=== PATIENT | male | born 1945 | race African-American/Black ===

== ENCOUNTER 2018-10-23 00:46 | Outpatient (CLI) | payer BC, SELFPAY ==
--- NOTE | 2018-10-23 14:59 | DI.US_ITS ---
SYMPTOMS/DIAGNOSIS: ELEVATED PSA, ABNORMAL PROSTATE BY PALPATION, R97.20, N42.9 ULTRASOUND GUIDANCE FOR PROSTATE BIOPSY: Ultrasound guidance was provided for prostate biopsy performed by Dr. Dacosta. Please see Dr. Dacosta's procedure note.
--- NOTE | 2018-10-23 15:15 | PROST_PTH ---
PATIENT: Corey Subramanian LOC: [facility] U#:[id number] AGE/SX: 73/M ROOM: RE10/23/[address]: Juni Dacosta MD : 1945 BED: DIS: 10/23/2018 SPEC #: [id number] RECD: 10/23/18 17:54 STATUS: ARNULFO RE #: [id number] JACKIE: 10/23/18 15:[address]: Juni Dacosta DEPT: Surgical Specimen RECD BY: Bela Yu ENTERED: 10/23/18 18:10 SP TYPE: PROST OTHR DR: Kirill Hi Tissues: 1 - PROSTATE NEEDLE BIOPSY 2 - PROSTATE NEEDLE BIOPSY 3 - PROSTATE NEEDLE BIOPSY 4 - PROSTATE NEEDLE BIOPSY 5 - PROSTATE NEEDLE BIOPSY 6 - PROSTATE NEEDLE BIOPSY 7 - PROSTATE NEEDLE BIOPSY 8 - PROSTATE NEEDLE BIOPSY 9 - PROSTATE NEEDLE BIOPSY 10 - PROSTATE NEEDLE BIOPSY 11 - PROSTATE NEEDLE BIOPSY 12 - PROSTATE NEEDLE BIOPSY Procedures: GROSS AND MICRO LEVEL 4 Comments: [id number]
--- NOTE | 2018-10-23 16:26 | ROE_ITS ---
DATE OF PROCEDURE: October 23, 2018 PREPROCEDURE DIAGNOSIS: Elevated PSA. POSTPROCEDURE DIAGNOSIS: Same. PROCEDURE: Transrectal ultrasound-guided biopsy of the prostate. SURGEON: Juni Dacosta M.D. ANESTHESIA: Local. COMPLICATIONS: None. ESTIMATED BLOOD LOSS: Minimal. HISTORY: This is a 73-year-old gentleman who has a history of an elevated PSA. His most-recent leve l was 17 ng/mL. This level was drawn while he was on Finasteride. In addition to the elevated PSA, he had a firmness on the entire prostate, although the right side se emed more firm than the left. He presents now for ultrasound-guided biopsy of the prostate. PROCEDURE: The patient was given a pre-procedure mechanical and antibiotic bowel prep. He was broug ht to the radiology suite on 10/23/18. He was placed in the left lateral position. Transrectal imaging of the prostate was performed using a variable megahertz transducer. The prostat e was imaged in transverse and longitudinal planes. The prostatic volume was measured at 18 cc's. There was loss or architecture between the transition and peripheral zones. No specific hypoechoic a reas were seen however. Using 1% Xylocaine without epinephrine, a periprostatic nerve block was performed. Twelve laterally- directed biopsies were then taken and sent to Pathology for permanent section. Each biopsy was label ed separately. The patient tolerated this procedure well. There were no complications. cc: Kirill Hi M.D.
== END 2018-10-23 01:06 ==
PROVIDERS: PCP Family Medicine; Visit Provider Urology
DX: R97.20 Elevated prostate specific antigen [PSA]; C61 Malignant neoplasm of prostate
CPT/HCPCS: 55700; 76872; 76942; 88305

== ENCOUNTER 2018-11-24 01:11 | Outpatient (CLI) | payer BC, SELFPAY ==
--- NOTE | 2018-11-24 08:11 | DI.CT_ITS ---
SYMPTOM/DIAGNOSIS: R/O METS PROSTATE CANCER C61 CT ABDOMEN AND PELVIS: There are no prior comparison exams. Images were performed from the lung bases through the ischial tuberosities after IV and oral contrast. The heart size is normal. The lung bases are clear. There is respiratory motion on the upper images on the venous phase of exam. The liver, spleen, pancreas, kidneys, adrenals and gallbladder are unremarkable. The prostate appears mildly enlarged. The bladder wall appears thickened. There is no visible invasive mass. No adenopathy seen in the abdomen or pelvis. The right testicle is located within the right inguinal canal. No bowel dilatation or inflammatory changes are seen. There has been previous laminectomy at L4 and L5. There are severe degenerative disc changes with increased sclerosis at these levels. No lytic or blastic bony metastases are seen. The aorta shows mild calcification distally but is normal in diameter. IMPRESSION: Enlarged prostate without evidence of invasion locally. Diffusely thickened bladder wall. Right inguinal testicle.
--- NOTE | 2018-11-24 08:11 | DI.NM_ITS ---
SYMPTOM/DIAGNOSIS: ? METS, PROSTATE CA BONE SCAN: 24.3 millicuries of Technetium 99 M MDP were administered IV. Comparison is made with CT of the abdomen and pelvis of the same day. There is increased activity in the lower cervical, lower thoracic as well as lower lumbar spine most likely indicating degenerative. There are severe degenerative disc changes seen on the CT at L 4-5. Degenerative disc changes are also seen at T 11-12. The patient was unable to void and the urinary bladder is full somewhat obscuring visualization of the sacrum. There is also increased activity in both knees, presumably degenerative. IMPRESSION: Mildly increased activity in the spine, likely indicating degenerative change. No definite bony metastases are seen.
[2018-11-24 08:43] LABS: CREATININE 0.92 mg/dL (0.70-1.30)
[2018-11-24] MEDS: Breeza Beverage 473 ML BTL PO ×2 (08:50→08:51)
[2018-11-24] MEDS: Omnipaque 350 MG/ML 50 ML BTL IJ (08:51)
[2018-11-24] MEDS: Omnipaque 350 MG/ML 100 ML BTL IJ (11:13)
[2018-11-27 14:50] LABS: PSA, Diagnostic 16.3 ng/ml (0-6.5)
== END 2018-11-24 01:31 ==
PROVIDERS: PCP Family Medicine; Visit Provider Urology
DX: C61 Malignant neoplasm of prostate (principal); R97.20 Elevated prostate specific antigen [PSA]; N40.0 Benign prostatic hyperplasia without lower urinary tract symptoms; N32.89 Other specified disorders of bladder; M51.36 Other intervertebral disc degeneration, lumbar region
CPT/HCPCS: 78306; 74177; 82565; 84153; J3490; Q9967

== ENCOUNTER 2019-01-24 13:53 | Outpatient (REF) | payer BC, SELFPAY ==
[2019-01-24 15:48] LABS: Bilirubin Negative (Negative); Blood Negative (Negative); Clarity Clear (Clear); Glucose Negative (Negative); Ketones Negative (Negative); Leukocyte Esterase Negative (Negative); Nitrite Negative (Negative); Specific Gravity <= 1.005 (1.005-1.025); Urobilinogen 0.2 EU/dL (Up TO 0.2); pH 6.5 (5-8)
== END 2019-01-24 14:13 ==
LOC: LBN 13:53
PROVIDERS: PCP Family Medicine; Visit Provider Radiology Radiation Oncology
DX: R30.0 Dysuria (principal); R61 Generalized hyperhidrosis
CPT/HCPCS: 81003

== ENCOUNTER 2019-04-19 14:23 | Outpatient (CLI) | payer BC, SELFPAY ==
[2019-04-19 14:49] LABS: Bilirubin Negative (Negative); Blood Small (Negative); Clarity Clear (Clear); Glucose Negative (Negative); Ketones Negative (Negative); Leukocyte Esterase Trace (Negative); Nitrite Negative (Negative); Specific Gravity 1.015 (1.005-1.025); Urobilinogen 0.2 EU/dL (Up TO 0.2)
[2019-04-19 15:00] LABS: Bacteria Rare HPF (Negative); C & S Indicated? Yes; Casts Negative LPF (Negative); Crystals Negative HPF (Negative); Epithelial Cells Rare HPF (Negative); Mucus Trace (Negative); Other Cells Rare Renal (Negative)
== END 2019-04-19 14:43 ==
PROVIDERS: PCP Family Medicine; Visit Provider Radiology Radiation Oncology
DX: N40.0 Benign prostatic hyperplasia without lower urinary tract symptoms (principal)
CPT/HCPCS: 81003; 81015; 87086

== ENCOUNTER 2019-12-14 03:47 | Outpatient (CLI) | payer BC, SELFPAY ==
[2019-12-17 13:32] LABS: PSA, Ultrasensitive 0.03 ng/mL (<= 6.5)
[2019-12-19 16:48] LABS: Testosterone, Total <7.0 ng/dL (240-950)
== END 2019-12-14 04:07 ==
PROVIDERS: PCP Family Medicine; Visit Provider Radiology Radiation Oncology
DX: C61 Malignant neoplasm of prostate (principal)
CPT/HCPCS: 36415; 84153; 84403

== ENCOUNTER 2020-10-03 13:25 | Outpatient (REF) | payer MEDICAID, SELFPAY ==
[2020-10-03 15:24] LABS: Anion Gap 9.5 mmol/L (3-11); BUN 16 mg/dL (7-18); CO2 26.5 mmol/L (21.0-32.0); CREATININE 0.9 mg/dL (0.70-1.30); Calcium 9.5 mg/dL (8.5-10.1); Chloride 105 mmol/L (98-107); Glucose 172 mg/dL (74-106); Potassium 4.2 mmol/L (3.5-5.1); Sodium 141 mmol/L (136-145)
[2020-10-06 10:18] LABS: PSA, Diagnostic <0.1 ng/mL (0.0-6.5)
[2020-10-08 08:21] LABS: Testosterone, Total <7.0 ng/dL (240-950)
== END 2020-10-03 13:26 | disposition home or self-care (01) ==
LOC: LBN 13:25
PROVIDERS: PCP Family Medicine; Visit Provider Urology
DX: C61 Malignant neoplasm of prostate (principal); R39.89 Other symptoms and signs involving the genitourinary system; R97.20 Elevated prostate specific antigen [PSA]
CPT/HCPCS: 80048; 84403; 84153

== ENCOUNTER → 2021-09-24 11:00 | Outpatient (BNVA) | payer MEDICARE, MEDICAID, SELFPAY | PROVIDERS: PCP Family Medicine; Referring Provider Family Medicine; Visit Provider Urology | DX: N40.1 Benign prostatic hyperplasia with lower urinary tract symptoms (principal); R39.12 Poor urinary stream; R32 Unspecified urinary incontinence; C61 Malignant neoplasm of prostate | CPT/HCPCS: 51798; 81003; 99214 ==

== ENCOUNTER → 2022-01-01 10:06 | Outpatient (BNVA) | payer MEDICARE, MEDICAID, SELFPAY | PROVIDERS: PCP Family Medicine; Referring Provider Family Medicine; Visit Provider Urology | DX: N40.1 Benign prostatic hyperplasia with lower urinary tract symptoms (principal); Z85.46 Personal history of malignant neoplasm of prostate; Z98.890 Other specified postprocedural states; R32 Unspecified urinary incontinence | CPT/HCPCS: 51798; 99213 ==

== ENCOUNTER → 2022-04-06 14:31 | Outpatient (BNVA) | payer MEDICARE, MEDICAID, SELFPAY | PROVIDERS: PCP Family Medicine; Referring Provider Family Medicine; Visit Provider Nurse Practitioner Gerontology | DX: R39.89 Other symptoms and signs involving the genitourinary system (principal); N39.3 Stress incontinence (female) (male); Z85.46 Personal history of malignant neoplasm of prostate | CPT/HCPCS: 51798; 99214 ==

== ENCOUNTER → 2022-07-01 12:50 | Outpatient (BNVA) | payer MEDICARE, MEDICAID, SELFPAY | PROVIDERS: PCP Family Medicine; Referring Provider Family Medicine; Visit Provider Nurse Practitioner Gerontology | DX: N39.3 Stress incontinence (female) (male) (principal); R26.81 Unsteadiness on feet; Z85.46 Personal history of malignant neoplasm of prostate | CPT/HCPCS: 51798; 99213 ==

== ENCOUNTER → 2023-01-14 10:22 | Outpatient (BNVA) | payer MEDICARE, MEDICAID, SELFPAY | PROVIDERS: PCP Family Medicine; Referring Provider Family Medicine; Visit Provider Urology | DX: R39.89 Other symptoms and signs involving the genitourinary system (principal); Z85.46 Personal history of malignant neoplasm of prostate | CPT/HCPCS: 51798; 81003; 99214 ==

== ENCOUNTER → 2023-10-21 09:37 | Outpatient (BNVA) | payer MEDICARE, MEDICAID, SELFPAY | PROVIDERS: PCP Family Medicine; Referring Provider Family Medicine; Visit Provider Urology | DX: R39.12 Poor urinary stream (principal); R35.1 Nocturia; Z85.46 Personal history of malignant neoplasm of prostate | CPT/HCPCS: 76857 ==

== ENCOUNTER → 2023-12-09 12:28 | Outpatient (BNVA) | payer MEDICARE, MEDICAID, SELFPAY | PROVIDERS: PCP Family Medicine; Referring Provider Family Medicine; Visit Provider Urology | DX: C61 Malignant neoplasm of prostate (principal); N40.1 Benign prostatic hyperplasia with lower urinary tract symptoms; R35.1 Nocturia | CPT/HCPCS: 76775; 99213 ==

== ENCOUNTER → 2024-01-19 09:41 | Outpatient (BNVA) | payer MEDICARE, MEDICAID, SELFPAY | PROVIDERS: PCP Family Medicine; Referring Provider Family Medicine; Visit Provider Student in an Organized Health Care Education/Training Program | DX: M17.11 Unilateral primary osteoarthritis, right knee (principal); M17.12 Unilateral primary osteoarthritis, left knee; M25.571 Pain in right ankle and joints of right foot; M25.572 Pain in left ankle and joints of left foot; M76.821 Posterior tibial tendinitis, right leg; M76.822 Posterior tibial tendinitis, left leg; G89.29 Other chronic pain | CPT/HCPCS: 20610; 99215; J7318 ==

== ENCOUNTER → 2024-01-24 10:03 | Outpatient (BNVA) | payer MEDICARE, MEDICAID, SELFPAY | PROVIDERS: PCP Family Medicine; Referring Provider Family Medicine; Visit Provider Urology | DX: N40.1 Benign prostatic hyperplasia with lower urinary tract symptoms (principal); R39.15 Urgency of urination; R32 Unspecified urinary incontinence; C61 Malignant neoplasm of prostate | CPT/HCPCS: 76857; 99213 ==

== ENCOUNTER → 2024-03-29 11:16 | Outpatient (BNVA) | payer MEDICARE, MEDICAID, SELFPAY | PROVIDERS: PCP Family Medicine; Referring Provider Family Medicine; Visit Provider Physical Therapy Assistant | DX: R19.5 Other fecal abnormalities (principal); Z12.11 Encounter for screening for malignant neoplasm of colon | CPT/HCPCS: 99213 ==

== ENCOUNTER → 2024-04-09 13:00 | Outpatient (BNVA) | payer MEDICARE, MEDICAID, SELFPAY | PROVIDERS: PCP Family Medicine; Referring Provider Family Medicine; Visit Provider Student in an Organized Health Care Education/Training Program | DX: M70.62 Trochanteric bursitis, left hip (principal); M48.061 Spinal stenosis, lumbar region without neurogenic claudication; M17.11 Unilateral primary osteoarthritis, right knee; M17.12 Unilateral primary osteoarthritis, left knee; M54.9 Dorsalgia, unspecified | CPT/HCPCS: 20610; 99215; J1010 ==

== ENCOUNTER → 2024-04-18 13:28 | Outpatient (BNVA) | payer MEDICARE, MEDICAID, SELFPAY | PROVIDERS: PCP Family Medicine; Referring Provider Family Medicine; Visit Provider Psychiatry & Neurology Neurology | DX: G62.9 Polyneuropathy, unspecified (principal); M21.371 Foot drop, right foot; M21.372 Foot drop, left foot | CPT/HCPCS: 99215; G2212 ==

== ENCOUNTER 2024-04-27 00:28 | Outpatient (CLI) | payer MEDICARE, MEDICAID, SELFPAY ==
--- NOTE | 2024-04-27 07:00 | DI.MRI_ITS ---
Exam(s) MR LUMBAR SPINE WO EXAM: MR LUMBAR SPINE WO CLINICAL HISTORY: BACK PAIN, LUMBAR SPINAL STENOSIS,M54.9,M48.061. TECHNIQUE: Multiplanar multisequence MRI of the Lumbar spine was performed. COMPARISON: CR XR LS SPINE 2-3 VIEWS from 11/18/2022 FINDINGS: Bones: The last intervertebral disc space is designated the L5/S1 level for the numbering purpose of this ex amination. The vertebral body heights are well maintained. Prior laminectomies at L5 and S1. Alignment: Mild degenerative levoscoliosis. The marrow signal characteristics show degenerative signal changes. No suspicious lesions. Cord: The conus tip ends at the T12 level. It is of normal size and signal intensity. T11-12: Moderate loss of disc height greatest greater posteriorly of with small small disc osteophyte s. Facet degenerative changes also present. Mild central canal stenosis. Mild bilateral neural for aminal narrowing. T12-L1: Minimal disc bulging. No focal disc herniation is present. No central spinal canal stenosis .No neural foraminal stenosis. L1-2 disc height is maintained. Mild concentric disc bulging. No focal disc herniation is present. Facet degenerative changes. Mild central spinal canal stenosis.Mild bilateral neural foraminal sten osis. L2-3 severe loss of disc height, eccentric toward the right where there are prominent endplate osteop hytes and degenerative signal changes in the endplates. No focal disc herniation is present. Facet degenerative changes are present. Moderate to severe central spinal canal stenosis.Moderate bilater al neural foraminal stenosis. L3-4: Mild loss of disc height eccentric toward the right. Small, facet degenerative changes. Endpl ate osteophytes greater on the right. No disc herniation is present. Moderate central spinal canal stenosis.Severe right and moderate left neural foraminal stenosis. L4-5: Severe loss of disc height with prominent endplate osteophytes. Diffuse disc bulging. No foc al disc herniation is present facet degenerative changes, greater on the left. No central spinal can al stenosis.Severe bilateral neural foraminal stenosis. L5-S1: Loss of disc height greater posteriorly. Small endplate osteophytes.No focal disc herniation is present. Facet degenerative changes. No central spinal canal stenosis.Moderate to severe bilate ral neural foraminal stenosis. The visualized SI joints and sacrum are unremarkable. Soft tissues: The paraspinal soft tissues are unremarkable. IMPRESSION: Multilevel degenerative disc changes and facet degenerative changes. There is multilevel bilateral n eural foraminal narrowing, most severe at L4-5. Central canal stenosis is moderate at L3-4 and L4-5. DATA REPOSITORY:
== END 2024-04-27 00:48 ==
LOC: DI 00:28
PROVIDERS: PCP Family Medicine; Visit Provider Student in an Organized Health Care Education/Training Program
DX: M48.061 Spinal stenosis, lumbar region without neurogenic claudication (principal)
CPT/HCPCS: 72148

== ENCOUNTER → 2024-05-16 13:24 | Outpatient (BNVA) | payer MEDICARE, MEDICAID, SELFPAY | PROVIDERS: PCP Family Medicine; Referring Provider Family Medicine; Visit Provider Podiatrist | DX: E11.42 Type 2 diabetes mellitus with diabetic polyneuropathy (principal); B35.1 Tinea unguium; L60.3 Nail dystrophy; M25.571 Pain in right ankle and joints of right foot; M25.572 Pain in left ankle and joints of left foot | CPT/HCPCS: 11721 ==

== ENCOUNTER → 2024-05-22 10:04 | Outpatient (BNVA) | payer MEDICARE, MEDICAID, SELFPAY | PROVIDERS: PCP Family Medicine; Referring Provider Family Medicine; Visit Provider Urology | DX: R32 Unspecified urinary incontinence (principal); C61 Malignant neoplasm of prostate | CPT/HCPCS: 51798; 99213 ==

== ENCOUNTER → 2024-05-28 13:05 | Outpatient (BNVA) | payer MEDICARE, MEDICAID, SELFPAY | PROVIDERS: PCP Family Medicine; Referring Provider Family Medicine; Visit Provider Student in an Organized Health Care Education/Training Program | DX: M48.061 Spinal stenosis, lumbar region without neurogenic claudication (principal) | CPT/HCPCS: 99214 ==

== ENCOUNTER 2024-05-30 02:03 | Outpatient (CLI) | payer MEDICARE, MEDICAID, SELFPAY ==
--- NOTE | 2024-05-30 11:36 | DI.RAD_ITS ---
Exam(s) XR ANKLE RT COMPLETE XR ANKLE LT COMPLETE EXAM: XR ANKLE RT COMPLETE CLINICAL HISTORY: BILAT ANKLE JOINT PAIN,M25.571. TECHNIQUE: 2D digital imaging was performed. Three views of both ankle. COMPARISON: CR XR ANKLE LT COMPLETE from 05/30/2024 FINDINGS: BONES: No acute fracture is present. No talar dome defect. No bony destructive lesion is seen. JOINTS: The ankle mortise is normally aligned. The ankle joint spaces are maintained. Minimal jani articular spurring. SOFT TISSUE: Normal mild vascular calcifications. IMPRESSION: Mild degenerative changes of the ankles. DATA REPOSITORY: RADIATION DOSE DELIVERED:
== END 2024-05-30 02:23 ==
LOC: DI 02:03
PROVIDERS: PCP Family Medicine; Visit Provider Podiatrist
DX: M25.571 Pain in right ankle and joints of right foot (principal); M25.572 Pain in left ankle and joints of left foot
CPT/HCPCS: 73610

== ENCOUNTER → 2024-06-04 12:18 | Outpatient (BNVA) | payer MEDICARE, MEDICAID, SELFPAY | PROVIDERS: PCP Family Medicine; Referring Provider Family Medicine; Visit Provider Psychiatry & Neurology Neurology | DX: G62.9 Polyneuropathy, unspecified (principal); M21.371 Foot drop, right foot; M21.372 Foot drop, left foot; M48.061 Spinal stenosis, lumbar region without neurogenic claudication | CPT/HCPCS: 99215 ==

== ENCOUNTER 2024-07-05 10:12 | Outpatient (CLI) | payer MEDICARE, MEDICAID, SELFPAY ==
--- NOTE | 2024-07-05 06:00 | DI.RAD_ITS ---
Exam(s) XR PAIN CLINIC LUMBAR SP 2V EXAM: XR PAIN CLINIC LUMBAR SP 2V CLINICAL HISTORY: DX: Lumbar Radiculopathy TECHNIQUE: 2D and realtime digital imaging was performed. CONTRAST MATERIAL: Refer to procedure report. COMPARISON: No exams were available for comparison FINDINGS: Fluoroscopy was provided for Dr. Sanchez during the performance of a caudal epidural steroid injection. Please refer to the procedure report for complete details. Ka,r=8.9 mGy IMPRESSION: RADIATION DOSE DELIVERED: 0.0 0.0 0
[2024-07-05 10:30] VITALS: BP 146/72; PULSE 79; RESP 18; TEMP 36.6; O2SAT 98
[2024-07-05 11:02] VITALS: PULSE 91; PULSE 93; RESP 17; O2SAT 99
[2024-07-05 11:03] VITALS: BP 207/92; PULSE 90; RESP 16; O2SAT 99
[2024-07-05 11:10] VITALS: PULSE 94; RESP 14; O2SAT 100
[2024-07-05 11:16] VITALS: BP 157/71; PULSE 88
[2024-07-05] MEDS: methylPREDNISolone ACETATE 80 MG/ML VIAL IJ (11:22)
[2024-07-05] MEDS: Nerve Block Tray 1 EACH MC (11:22)
[2024-07-05] MEDS: Omnipaque 240 MG/ML 50 ML BTL IJ (11:22)
--- NOTE | 2024-07-05 11:27 | PDOC.PAIN ---
Date of service: 07/05/24 Time of Service: 12:42 Pain Managment Procedure Note Procedure Note Procedure Note: PROCEDURE NOTE CAUDAL EPIDURAL STEROID INJECTION Date of Service: July 05, 2024 Patient:Corey Maria? Provider:? Kirill Sanchez DO, MPH Corey Subramanian has been [facility] to [facility] for caudal epidural steroid injection.? Pre-operative diagnosis: Lumbosacral Radiculopathy, ICD-10 M54.17 Post-operative diagnosis: Same Pre-Procedure Pain: VAS= 7/10. COMMENTS: I previously evaluated him in the office. Arabellawas interviewed and the medical record was reviewed.? There were no medical, pharmacologic, radiographic or other structural contraindications to attempting fluoroscopically guided epidural steroid injection.? Risks and expected side effects as well as potential benefit of the procedure were reviewed with Arabella, and the patient's voiced concerns were addressed.? The printed consent form was signed.? Standard time-out procedure was performed. Arabella was placed in the prone position on the fluoroscopy table and automated blood pressure cuff and pulse oximeter applied.? The skin entry point for entering/approaching the epidural space by a caudal approach through the sacral hiatus ed identified with surgical skin marking.? Following thorough chlorhexidine preparation of the skin and draping and 1% lidocaine infiltration of the skin entry point and subcutaneous tissues, a 17 gauge Touhy needle was placed under fluoroscopic guidance? into the epidural space. Needle tip placement and depth were aided and confirmed by fluoroscopy in the lateral and AP position. There was no paresthesia or return of blood or CSF through the needle. 1 cc of Omnipaque 240 was injected with clear epidural spread confirmed with fluoroscopy. An Arrow 19G radio-opaque epidural catheter was advanced into the epidural space to the L5-S1 level and 2 cc of Omnipaque 240 was injected with clear epidural spread. 80 mg of Depo-Medrol was? injected. There was no unusual discomfort expressed by Corey. The needle and catheter were then flushed with 1 cc of 1% Lidocaine and they were removed together without difficulty (49 cc of Omnipaque was wasted). Corey was observed and was without hemodynamic, neurologic, or allergic reactions.? Fluoroscopic images were digitally archived. Corey's vital signs were stable throughout the procedure and were as recorded in the docflowsheet by the nursing staff.? If given, dosages of intravenous drugs for anxiolysis and analgesia were documented in MAR. Follow up plans and appointments were discussed with Corey.? Post procedure instruction was given as documented in nursing documentation and having met discharge criteria, [facility]. ? COMMENTS: No apparent complications.? Post-procedure pain: VAS= 4/10. If the patient receives at least 50% improvement in pain and/or function for at least 3 months, this procedure can be repeated. I personally completed the entire procedure. KIRILL SANCHEZ DO, MPH [employer] - Subspecialty board certification in Pain Medicine [facility] Coding Conscious Sedation used for procedure: No CPT Codes: Inj Spine L/S w/Imaging - [id number] ([id number] ~G) Additional Codes: Date of Service (67007) Date of service: 07/05/24
== END 2024-07-05 10:13 | disposition home or self-care (01) ==
LOC: PC 10:13
PROVIDERS: PCP Family Medicine; Visit Provider Preventive Medicine Occupational Medicine
DX: M54.50 Low back pain, unspecified (principal); M54.17 Radiculopathy, lumbosacral region
CPT/HCPCS: 62323; 72100; J1010; Q9967

== ENCOUNTER 2024-07-16 10:26 | Outpatient (CLI) | payer MEDICARE, MEDICAID, SELFPAY ==
--- NOTE | 2024-07-16 10:15 | DI.RAD_ITS ---
Exam(s) XR HAND RT COMPLETE EXAM: XR HAND RT COMPLETE CLINICAL HISTORY: R hand pain. TECHNIQUE: 2D digital imaging was performed. Three views. COMPARISON: No exams were available for comparison FINDINGS: BONES: No acute fracture is present. No bony destructive lesion is seen. JOINTS: No dislocation present. Mild narrowing and spurring at the interphalangeal joints of the fi ngers. There remaining still joint spaces are maintained. SOFT TISSUE: Vascular calcifications. IMPRESSION: Mild degenerative changes of the interphalangeal joints. DATA REPOSITORY: RADIATION DOSE DELIVERED:
== END 2024-07-16 10:27 | disposition home or self-care (01) ==
LOC: DIORS 10:26
PROVIDERS: PCP Family Medicine; Referring Provider Family Medicine; Visit Provider Student in an Organized Health Care Education/Training Program
DX: M79.641 Pain in right hand (principal); M17.0 Bilateral primary osteoarthritis of knee; M48.061 Spinal stenosis, lumbar region without neurogenic claudication
CPT/HCPCS: 99214; 73130

== ENCOUNTER → 2024-08-16 09:06 | Outpatient (BNVA) | payer MEDICARE, MEDICAID, SELFPAY | PROVIDERS: PCP Family Medicine; Referring Provider Family Medicine; Visit Provider Student in an Organized Health Care Education/Training Program | DX: M17.0 Bilateral primary osteoarthritis of knee (principal) | CPT/HCPCS: 20610 ×2; J1010 ==